=== PATIENT | female | born 1935 | race African-American/Black ===

== ENCOUNTER 2016-09-29 06:34 | Day surgery (SDC) | payer MEDICARE ==
[2016-09-29 07:01] LABS: HEMOGLOBIN 12.6 g/dL (12.0-15.5); HGB HCT DIFFERENCE 0.8; MEAN CORPUSCULAR HEMOGLOBIN 31.9 pg (27.0-33.4); MEAN CORPUSCULAR VOLUME 94 fl (80-97); RED BLOOD COUNT 3.93 10^6/uL (3.72-5.28); RED CELL DISTRIBUTION WIDTH 13.8 % (11.5-14.0); WHITE BLOOD COUNT 3.2 10^3/uL (4.0-10.5)
[2016-09-29] MEDS ORDERED: ONDANSETRON HCL INJ/PF 4 MG/2 ML SDV ONE (07:16)
[2016-09-29] MEDS ORDERED: NALOXONE HCL INJ/PF 0.4 MG/1 ML SDV ONE (07:17)
[2016-09-29 07:18] LABS: ANION GAP 13 (5-19); BLOOD UREA NITROGEN 12 mg/dL (7-20); CALCIUM 9.3 mg/dL (8.4-10.2); CARBON DIOXIDE 23 mmol/L (22-30); CHLORIDE 104 mmol/L (98-107); CREATININE RESULT 0.89 mg/dL (0.52-1.25); GLUCOSE 67 mg/dL (75-110); POTASSIUM 4.6 mmol/L (3.6-5.0); SODIUM 140.2 mmol/L (137-145)
[2016-09-29] MEDS ORDERED: FLUMAZENIL INJ 0.5 MG/5 ML VIAL IV ONE (07:18)
[2016-09-29] MEDS ORDERED: EPINEPHRINE INJ 1 MG/10 ML DISP.SYRIN ONE (07:19)
[2016-09-29] MEDS ORDERED: GLUCAGON,HUMAN RECOMB 1 MG INJ ONE (07:19)
[2016-09-29] MEDS: MIDAZOLAM 2 MG/2 ML INJ ONE ×2 (08:15→08:18)
[2016-09-29] MEDS: FENTANYL CITRATE INJ/PF 100 MCG/2 ML AMPUL ONE ×2 (08:17→08:20)
--- NOTE | 2016-09-29 08:51 | Operative Report ---
Operative Report DATE OF SURGERY: 09/29/16 PREOPERATIVE DIAGNOSIS: History of colon polyps POSTOPERATIVE DIAGNOSIS: Diverticulosis. leukopenia OPERATION: Colonoscopy SURGEON: MAGDALENA DICKERSON ANESTHESIA: Moderate Sedation TISSUE REMOVED OR ALTERED: None COMPLICATIONS: None ESTIMATED BLOOD LOSS: None INTRAOPERATIVE FINDINGS: Scattered diverticuli throughout the colon PROCEDURE: Consent was obtained. Patient was brought to the endoscopy suite. IV sedation with Versed and fentanyl was administered. Digital rectal exam revealed no palpable perianal masses. Endoscope was passed. The patient's anus it was fed to the cecum. Bowel prep was good. Visualization was good. Cecum and right colon were all normal. Transverse colon descending colon and the sigmoid colon has scattered diverticuli. The rectum appeared normal. Patient tolerated procedure well with no apparent complications. Patient with history of colon polyps. No polyps on current colonoscopy. Will consider stoppage of further screening in light of the patient's age unless she develops symptoms. I will discuss this matter with her on her follow-up visit. Patient noted with leukopenia with white blood cell count of 3.2 on preoperative laboratory testing. I will plan to refer her to hematology at her follow-up visit.
--- NOTE | 2016-09-29 08:54 | PDOC DISCHARGE SUMMARY ---
Discharge Summary (SDC) - Discharge Final Diagnosis: Diverticulosis of the colon. leukopenia Date of Surgery: 09/29/16 Discharge Date: 09/29/16 Condition: Good Treatment or Instructions: Colonoscopy. may discharge patient home when met discharge criteria. Follow-up with me in 2 weeks. Discharge Diet: As Tolerated Discharge Activity: Activity As Tolerated Report the Following to Your Physician Immediately: Increase in Pain, Unusual Bleeding
[2016-09-29 09:34] VITALS: BP 124/63
== END 2016-09-29 09:35 | disposition home or self-care (01) ==
LOC: END 06:34
PROVIDERS: ATTEND Surgery
PROC: 0DJD8ZZ Inspection of Lower Intestinal Tract, Via Natural or Artificial Opening Endoscopic (ICD-10-PCS; principal; 2016-09-29 08:00)
DX: K57.30 Diverticulosis of large intestine without perforation or abscess without bleeding (principal); D72.819 Decreased white blood cell count, unspecified; Z86.010 Personal history of colon polyps; Z79.899 Other long term (current) drug therapy; Z79.82 Long term (current) use of aspirin; Z90.49 Acquired absence of other specified parts of digestive tract
CPT/HCPCS: 45378; 36415; 85027; 80048; J2250; J3010; J0171; J1610; J2310; J2405; J3490

== ENCOUNTER → 2016-10-26 | Outpatient (CLI) | payer MEDICARE ==
[2016-10-26 14:14] LABS: ADD HIVPANEL? NO; HIV (1 AND 2) ANTIBODY NEGATIVE (NEGATIVE)
== END ==
LOC: OD 11:34
PROVIDERS: ATTEND Surgery
DX: D72.819 Decreased white blood cell count, unspecified (principal)
CPT/HCPCS: 36415; 86701

== ENCOUNTER → 2019-07-07 | Outpatient (CLI) | payer MEDICARE ==
--- NOTE | 2019-07-07 09:28 | WOMENS IMAGING REPORT ---
EXAM DESCRIPTION: BONE DENSITY HIP/SPINE COMPLETED DATE/TIME: 07/07/2019 8:26 am REASON FOR STUDY: M81.0 AGE-RELATED OSTEOPOROSIS WITHOUT CURRENT PATHOLOGICAL FRACTURE M81.0 AGE-RE LATED OSTEOPOROSIS W/O CURRENT PATHOLOGICAL FRAC COMPARISON: 07/20/2012 TECHNIQUE: Dual-Energy X-ray Absorptiometry (DEXA) of the AP Spine and Hip. LIMITATIONS: None. FINDINGS: LUMBAR SPINE: The bone mineral density (BMD) measured from L1-L4 in the AP projection correlates with a T-score of -3.7, which is osteoporosis as defined by the World Health Organization. BMD Change vs Baseline: 8.9%. BMD change from previous: 0.9%. HIP: The bone mineral density (BMD) measured in the left hip correlates with a T-score of -3.3, which is o steoporosis as defined by the World Health Organization. BMD Change vs Baseline: -2.7%. Change from previous: -1.4% 10 year Fracture Risk Assessment: Major Osteoporotic Fracture: Not available. Hip Fracture: Not available. IMPRESSION: 1. LUMBAR SPINE WHO CLASSIFICATION: OSTEOPOROSIS. 2. HIP WHO CLASSIFICATION: OSTEOPOROSIS. OVERALL ASSESSMENT: WHO CLASSIFICATION: OSTEOPOROSIS. COMMENT: The World Health Organization defines low BMD as follows: T-score: Normal: Greater than -1.0 Osteopenia: Between -1.0 and -2.5 Osteoporosis: Less than -2.5 without fractures Established osteoporosis: Less than -2.5 with fractures In general, you may wish to consider: Diagnosis Treatment Follow-up DEXA Normal BMD Prevention 2-3 years Osteopenia Prevention/Therapy 1-2 years Osteoporosis Therapy Yearly TECHNICAL DOCUMENTATION: JOB ID: [id number] 2010 [employer]- All Rights Reserved Reading location - IP/workstation name: [email or web address]
== END ==
LOC: WI 07:55
PROVIDERS: ATTEND Family Medicine
DX: M81.0 Age-related osteoporosis without current pathological fracture (principal)
CPT/HCPCS: 77080